=== PATIENT | female | born 1985 | race Caucasian/White ===

== ENCOUNTER 2025-03-19 09:24 | Emergency (ER) | payer BC, SELFPAY ==
[2025-03-19 09:27] VITALS: BP 122/84
[2025-03-19 10:47] LABS: % Basophils 0.5 % (0-2); % Eosinophils 0.8 % (0-6); % Immature Granulocytes 0.2 % (0-0.5); % Lymphocytes 34.9 % (20.5-51.1); % Monocytes 4.7 % (1.7-9.3); % Neutrophils 58.9 % (42.2-75.2); Absolute Eosinophils 0.1 10^3/uL (0-0.7); Absolute Lymphocytes 2.2 10^3/uL (1.2-3.4); Absolute Monocytes 0.3 10^3/uL (0.1-0.6); Absolute Neutrophils 3.8 10^3/uL (1.4-6.5); Hematocrit 39.1 % (37.0-47.0); Mean Corp Hgb Conc. 33.2 g/dL (33.0-37.0); Mean Corpuscular Volume 81.1 fL (81.0-99.0); Mean Platelet Volume 10.2 fL (7.4-10.4); Nucleated Red Blood Cells % 0 %; Platelet Count 280 10^3/uL (130-400); Red Blood Cell Count 4.82 10^6/uL (4.20-5.40); Red Cell Dist. Width 12.5 % (11.5-14.5); White Blood Cell Count 6.4 10^3/uL (4.8-10.8)
[2025-03-19 10:59] LABS: Blood Urea Nitrogen 14 mg/dl (7-17); Calcium 9.8 mg/dl (8.4-10.2); Carbon Dioxide 25 mmol/L (22-30); Chloride 105 mmol/L (98-107); Glucose 103 mg/dl (70-99); Potassium 3.9 mmol/L (3.5-5.1); Sodium 142 mmol/L (135-145); eGFR > 60.00
[2025-03-19 11:15] LABS: Beta HCG Quantitative 5.95 mIU/ml
[2025-03-19 11:51] VITALS: BMI 21.6
[2025-03-19] MEDS: TYLENOL 1000 MG PO (11:51)
[2025-03-19 11:54] VITALS: BP 108/86
[2025-03-19 12:00] VITALS: BP 106/77
--- NOTE | 2025-03-19 13:28 | ED.GENMED ---
History of Present Illness
General
Chief Complaint: Problems
Source: patient
Time Seen by Provider: 03/19/25 10:21
History of Present Illness
History of Present Illness:
This is a 39-year-old female who presents with vaginal bleeding. She states she took a positive test recently at home her last period was February 14. Patient presents for evaluation as she has had lower abdominal discomfort. No syncope.
No chest pain. No dysuria. Patient was 1 other time and has a child
Phy Exam
Physical Exam
Physical Exam:
CONSTITUTIONAL Patient alert and oriented to person, place and time. Well-appearing. Vital signs reviewed.
HEAD atraumatic, normocephalic.
EYES eyelids normal to inspection, Extraocular muscles intact, Conjunctiva normal, Sclera normal.
NECK normal range of motion, Trachea midline, no jugular venous distention.
RESPIRATORY CHEST No respiratory distress noted, Chest expansion equal
ABDOMEN mild lower abdominal tenderness generalized, Bowel sounds normal. No distention.
BACK normal inspection, no obvious deformities
UPPER EXTREMITY range of motion normal, Motor strength normal, no cyanosis, no edema.
LOWER EXTREMITY range of motion normal, Motor strength normal, no cyanosis, no edema.
NEURO Speech normal, No focal motor deficits, [place] coma scale 15, Memory normal, Cranial Nerves intact to screening exam.
SKIN skin warm, dry, and normal in color.
Course
Orders/Labs/Results
Orders:
Orders
03/19/25 10:26
US 1st Trimester Urgent
Comment:
Reason For Exam: PVB, r/o ectopic
03/19/25 10:33
Blood Group&Type Urgent
Basic Metabolic Panel Urgent
Beta HCG Quantitative Urgent
Is this a screen?: No
Complete Blood Count/With Diff Urgent
03/19/25 11:25
Acetaminophen [Tylenol] 1,000 mg PO NOW STA
03/19/25 13:58
ABO2 Urgent
BBK Wristband Number:
Associate notified that ABO2 has been ordered: [id number]
Date: 03/19/25
Time: 10:47
Mine Safety Engineer ID: [id number]
Abnormal Lab Results
03/19/25
10:33
Glucose 103 H mg/dl
(70-99)
03/19/25 10:33
03/19/25 10:33
Vital Signs
Initial and Last Documented VS:
Initial Vital Signs
Temp Pulse Resp BP Pulse Ox
97.5 F 64 16 122/84 99
03/19/25 09:27 03/19/25 09:27 03/19/25 09:27 03/19/25 09:27 03/19/25 09:27
Last Documented Vital Signs
Temp Pulse Resp BP Pulse Ox
97.5 F 64 16 106/77 100
03/19/25 09:27 03/19/25 09:27 03/19/25 09:27 03/19/25 12:00 03/19/25 12:00
Information
Weeks gestation: N/A
Location: N/A
MDM/Problems Addressed
Differential Diagnosis Includes:
Ectopic , early , miscarriage
MDM/Problems Addressed:
Suspected miscarriage
*Radiology
Radiology exam reviewed: radiology read reviewed
*Pulse Oximetry
Patient hypoxic: no
*Critical Care Note
Total Time (30-74mins, 75-104mins- exclusive of procedures): Not Applicable
Data Reviewed
Source: patient
Prescriptions/Medications Considered But Not Given:
Consider RhoGAM but Rh+
Patient Management
Escalation/DeEscalation of care consider admission/obs:
hCG is very low. Suspect miscarriage. Will advise repeat hCG to ensure it trends to 0.
ED Attending Note
-
Portions of this chart may have been created with voice recognition software.� Occasional wrong word or��sound alike� substitutions may have occurred due to the inherent limitations of voice recognition software.
Discharge Plan
Departure
Patient Disposition: Home (Routine Discharge)
Date of Disposition: 03/19/25
Time of Disposition: 13:55
Patient with high blood pressure during this ER visit?: No
Discharge Problem:
Suspected miscarriage
Instructions: Threatened Miscarriage (DC)
Referrals:
UNKNOWN - PT DOES,NOT KNOW [Family Provider] -
Activity Restrictions/Additional Instructions:
Please see your doctor on Friday to have your lab work rechecked. You should have a repeat hCG level drawn to ensure a trend to 0. Return immediately for worsening pain, lightheadedness, passing out episode or any other concerns.
Interventions
Interventions:
*Risk Screen - Suicide Last Done: 03/19/25 09:29
*General Assessment Last Done: 03/19/25 10:28
*Neglect/Abuse Screening Last Done: 03/19/25 09:29
*ED- Fall Risk Assessment Last Done: 03/19/25 10:26
*ED COVID-19 Vaccine History Last Done: 03/19/25 10:26
*Nursing Disposition Last Done: 03/19/25 14:23
ED-Female Genitourinary Assessment Last Done: 03/19/25 10:24
Discharge Date and Time
Discharge Date/Time: 03/19/25 14:27
Print Language: MALDIVIAN
== END 2025-03-19 14:27 | disposition home or self-care (01) ==
LOC: EMR 09:24
PROVIDERS: EMERGENCY PHYSICIAN Emergency Medicine
DX: O46.91 Antepartum hemorrhage, unspecified, first trimester (principal); O09.521 Supervision of elderly multigravida, first trimester; Z3A.01 Less than 8 weeks gestation of pregnancy
CPT/HCPCS: 99284; 76801; 80048; 84702; 85025; 86900; 86901